=== PATIENT | male | born 1975 | race Caucasian/White ===

== ENCOUNTER 2016-09-11 14:25 | Emergency (ER) | payer BC ==
[2016-09-11] MEDS ORDERED: Sodium Chloride 0.9% 10 ML Syringe FLUSH PRN (14:40)
--- NOTE | 2016-09-11 14:50 | EDM.PDOC ---
ED HPI GENERAL MEDICAL PROBLEM - General Chief Complaint: Chest Pain Stated Complaint: CHEST PAIN Time Seen by Provider: 09/11/16 14:31 Source of Information: Reports: Patient, RN Notes Reviewed - History of Present Illness INITIAL COMMENTS - FREE TEXT/NARRATIVE: 41 year old male with intermitent chest pains for about 1 week. Pressure achy discomfort lower chest also associated with upper abd pressure and cramps, duration about 1 minute or less per episode but happening more than once per day. Also feels "low energy" Has some chronic discomfort both shoulders "from work", not any worse than usual. No hx of Htn, diabetes or CAD. He does smoke. No known family hx for CAD. Middle Chest Pain Score (Numeric/FACES): 3 - Related Data Allergies Allergy/AdvReac Type Severity Reaction Status Date / Time Penicillins Allergy Cannot Verified 09/11/16 14:37 Remember Home Meds: Home Meds . [No Known Home Meds] 09/11/16 [History] Past Medical History Cardiovascular History: Reports: Heart Murmur Neurological History: Reports: Other (See Below) Other Neuro History: memory lose - Past Surgical History HEENT Surgical History: Reports: Tonsillectomy Social & Family History - Family History Family Medical History: Noncontributory - Tobacco Use Smoking Status *Q: Current Every Day Smoker Years of Tobacco use: 25 Packs/Tins Daily: 1 - Caffeine Use Caffeine Use: Reports: Energy Drinks - Recreational Drug Use Recreational Drug Use: No ED ROS GENERAL - Review of Systems Review Of Systems: See Below Constitutional: Denies: Fever, Chills, Diaphoresis HEENT: Reports: No Symptoms Respiratory: Reports: Shortness of Breath (occasional), Cough (chronic, not worse than usual). Denies: Pleuritic Chest Pain Cardiovascular: Reports: Chest Pain. Denies: Edema, Lightheadedness, Palpitations GI/Abdominal: Reports: Diarrhea (chronically). Denies: Abdominal Pain, Nausea, Vomiting Musculoskeletal: Reports: Shoulder Pain (chronic bilat, not any worse than usual ). Denies: Arm Pain Skin: Reports: No Symptoms Neurological: Reports: No Symptoms ED EXAM, GENERAL - Physical Exam Exam: See Below General Appearance: Alert, Anxious (mild) Eye Exam: Bilateral Eye: PERRL Throat/Mouth: Normal Inspection, Normal Oropharynx Head: Atraumatic. No: Facial Swelling Neck: Supple, Full Range of Motion, Other (no JVD) Respiratory/Chest: No Respiratory Distress, Lungs Clear, Normal Breath Sounds, Chest Non-Tender Cardiovascular: Regular Rate, Rhythm GI/Abdominal: Soft, Non-Tender. No: Guarding Back Exam: No: CVA Tenderness (L), CVA Tenderness (R) Extremities: Normal Inspection. No: Pedal Edema, Leg Pain Neurological: Alert, Oriented, No Motor/Sensory Deficits Skin Exam: Warm, Dry, Normal Color EKG INTERPRETATION EKG Date: 09/11/16 Rhythm: NSR [place]: normal P-wave: present QRS: normal ST-T: normal Course - Vital Signs Last Recorded V/S: Last Vital Signs Temp 98.1 F 09/11/16 14:30 Pulse 71 09/11/16 15:44 Resp 18 09/11/16 15:44 BP 135/88 09/11/16 15:44 Pulse Ox 97 09/11/16 15:44 - Orders/Labs/Meds Orders: Active Orders 24 hr Category Date Time Status EKG 12 Lead [EKG Documentation Completion] [RC] STAT Care 09/11/16 14:32 Active Peripheral IV Care [RC] . DIRECTED Care 09/11/16 14:41 Active Sodium Chloride 0.9% [Saline Flush] Med 09/11/16 14:40 Active 10 ml FLUSH ASDIRECTED PRN Peripheral IV Insertion Adult [OM.PC] Stat Oth 09/11/16 14:41 Ordered Medication Orders Sodium Chloride (Saline Flush) 10 ml FLUSH ASDIRECTED PRN PRN Reason: Keep Vein Open Last Admin: 09/11/16 14:55 Dose: 10 ml Labs: Laboratory Tests 09/11/16 09/11/16 Range/Units 14:40 14:40 WBC 8.04 (4.23-9.07) K/mm3 RBC 4.64 (4.63-6.08) M/mm3 Hgb 14.3 (13.7-17.5) gm/L Hct 40.8 (40.1-51.0) % MCV 87.9 (79.0-92.2) fl MCH 30.8 (25.7-32.2) pg MCHC 35.0 (32.2-35.5) g/dl RDW Std Deviation 41.6 (35.1-43.9) fL Plt Count 254 (163-337) K/mm3 MPV 11.2 (9.4-12.3) fl Neut % (Auto) 55.8 (34.0-67.9) % Lymph % (Auto) 35.7 (21.8-53.1) % [place] % (Auto) 7.6 (5.3-12.2) % Eos % (Auto) 0.4 L (0.8-7.0) Baso % (Auto) 0.4 (0.1-1.2) % Neut # (Auto) 4.49 (1.78-5.38) K/mm3 Lymph # (Auto) 2.87 (1.32-3.57) K/mm3 [place] # (Auto) 0.61 (0.30-0.82) K/mm3 Eos # (Auto) 0.03 L (0.04-0.54) K/mm3 Baso # (Auto) 0.03 (0.01-0.08) K/mm3 Sodium 141 (136-145) mEq/L Potassium 3.9 (3.5-5.1) mEq/L Chloride 107 (98-107) mEq/L Carbon Dioxide 27 (21-32) mEq/L Anion Gap 10.9 (5-15) BUN 15 (7-18) mg/dL Creatinine 1.0 (0.7-1.3) mg/dL Est Cr Clr Drug Dosing 111.88 mL/min Estimated GFR (MDRD) > 60 (>60) mL/min BUN/Creatinine Ratio 15.0 (14-18) Glucose 95 (74-106) mg/dL Calcium 9.3 (8.5-10.1) mg/dL Total Bilirubin 0.3 (0.2-1.0) mg/dL AST 19 (15-37) U/L ALT 45 (16-63) U/L Alkaline Phosphatase 78 (46-116) U/L Troponin I < 0.017 (0.00-0.056) ng/mL Total Protein 7.5 (6.4-8.2) g/dl Albumin 3.9 (3.4-5.0) g/dl Globulin 3.6 gm/dL Albumin/Globulin Ratio 1.1 (1-2) Meds: Medications Generic Name Dose Route Start Last Admin Trade Name Juanq PRN Reason Stop Dose Admin Sodium Chloride 10 ml 09/11/16 14:40 09/11/16 14:55 Saline Flush FLUSH 10 ml ASDIRECTED PRN Administration Keep Vein Open - Re-Assessments/Exams Free Text/Narrative Re-Assessment/Exam: 09/11/16 15:58 trop, EKG, CXR, other labs all normal, discharge instr. as documented. Departure - Departure Time of Disposition: 15:49 Disposition: Home, Self-Care 01 Condition: fair Clinical Impression: Atypical chest pain GERD (gastroesophageal reflux disease) Qualifiers: Esophagitis presence: without esophagitis Qualified Code(s): K21.9 - Gastro- esophageal reflux disease without esophagitis Instructions: Nonspecific Chest Pain, Gastroesophageal Reflux Disease, Adult Referrals: PCP,None [Primary Care Provider] - Forms: ED Department Discharge Additional Instructions: try hard to stop smoking, pepcid (famotidine), available OTC, 20 mg twice daily for stomach acid reduction, probiotic twice daily, also available OTC, follow up clinic as needed, return to ED as needed if symptoms worsening in any way. - My Orders Last 24 Hours: My Active Orders 09/11/16 14:32 EKG 12 Lead [EKG Documentation Completion] [RC] STAT 09/11/16 14:40 Sodium Chloride 0.9% [Saline Flush] 10 ml FLUSH ASDIRECTED PRN 09/11/16 14:41 Peripheral IV Care [RC] . DIRECTED Peripheral IV Insertion Adult [OM.PC] Stat - Assessment/Plan Last 24 Hours: My Active Orders 09/11/16 14:32 EKG 12 Lead [EKG Documentation Completion] [RC] STAT 09/11/16 14:40 Sodium Chloride 0.9% [Saline Flush] 10 ml FLUSH ASDIRECTED PRN 09/11/16 14:41 Peripheral IV Care [RC] . DIRECTED Peripheral IV Insertion Adult [OM.PC] Stat
--- NOTE | 2016-09-11 15:15 | CR ---
Chest: Portable view of the chest was obtained. Comparison: No previous chest x-ray. Heart size and mediastinum are normal. Lungs are clear. Minimal scoliosis is noted. Impression: 1. Nothing acute is seen on portable chest x-ray. Diagnostic code #2
[2016-09-11 16:07] VITALS: BP 132/74
== END 2016-09-11 16:05 | disposition home or self-care (01) ==
LOC: JD.ED 14:25
DX: K21.9 Gastro-esophageal reflux disease without esophagitis (principal); F17.210 Nicotine dependence, cigarettes, uncomplicated; Z88.0 Allergy status to penicillin; Z98.890 Other specified postprocedural states
CPT/HCPCS: 36415; 71010; 80053; 84484; 85025; 93005; 99285; J7050; 99284

== ENCOUNTER 2017-10-17 11:46 | Emergency (ER) | payer BC ==
[2017-10-17 12:12] VITALS: BP 116/71
[2017-10-17] MEDS ORDERED: Sodium Chloride 0.9% 1,000 ML IV ONE (12:42)
[2017-10-17] MEDS ORDERED: Ondansetron 4 MG/2 ML SDV IVPUSH ONE (12:42)
[2017-10-17] MEDS ORDERED: HYDROmorphone 0.5 MG/0.5 ML SYRINGE IVPUSH ONE (12:42)
[2017-10-17] MEDS ORDERED: Iopamidol 612 MG/ML 100 ML Bottle IVPUSH ONE (12:47)
--- NOTE | 2017-10-17 12:49 | EDM.PDOC ---
ED HPI GENERAL MEDICAL PROBLEM - General Chief Complaint: ENT Problem Stated Complaint: DENTAL COMPLAINT Time Seen by Provider: 10/17/17 12:28 Source of Information: Reports: Patient History Limitations: Reports: No Limitations - History of Present Illness INITIAL COMMENTS - FREE TEXT/NARRATIVE: 42-year-old male presents for evaluation and treatment of dental pain. Patient reports that he had 8 teeth extracted on October 09 by a local dentist. He was prescribed Tylenol No. 3 and clindamycin. He states he has been unable to take antibiotic and pain medication due to nausea. Feels that the pain is significantly worsening. Not been able to eat in the last 8 days. No fevers, chills or vomiting. Does feel nauseous. He feels that his face is very swollen and painful. Patient is a current, every day smoker. Bilateral Oral/Mouth Pain Score (Numeric/FACES): 8 - Related Data Allergies Allergy/AdvReac Type Severity Reaction Status Date / Time Penicillins Allergy Cannot Verified 09/11/16 14:37 Remember Home Meds: Home Meds Acetaminophen with Codeine [Tylenol with Codeine #3 Tablet] 1 each PO Q6H PRN [History] Acetaminophen/oxyCODONE [Percocet 325-5 MG] 1 each PO Q6HR PRN #15 tab 10/17/17 [Rx] Clindamycin HCl [Cleocin] 150 mg PO Q6H 10/17/17 [History] Ondansetron [Zofran ODT] 4 mg PO Q6H PRN #20 tab.dis 10/17/17 [Rx] Past Medical History Cardiovascular History: Reports: Heart Murmur Neurological History: Reports: Other (See Below) Other Neuro History: memory lose - Past Surgical History HEENT Surgical History: Reports: Oral Surgery, Tonsillectomy Social & Family History - Family History Family Medical History: Noncontributory - Tobacco Use Smoking Status *Q: Current Every Day Smoker Years of Tobacco use: 28 Packs/Tins Daily: 1 - Caffeine Use Caffeine Use: Reports: Energy Drinks - Recreational Drug Use Recreational Drug Use: Yes Recreational Drug Type: Reports: Cocaine, Marijuana/Hashish ED ROS ENT - Review of Systems Review Of Systems: See Below Constitutional: Denies: Fever, Chills HEENT: Reports: Dental Pain. Denies: Ear Pain GI/Abdominal: Reports: Nausea. Denies: Abdominal Pain (discomfort), Vomiting Neurological: Reports: Headache ED EXAM, ENT - Physical Exam Exam: See Below Exam Limited By: No Limitations General Appearance: Alert, WD/WN, No Apparent Distress Eye Exam: Bilateral Eye: Normal Inspection Ears: Normal External Exam, Normal TMs (left), TM Obscured by Cerumen (right) Nose: Normal Inspection Mouth/Throat: Normal Inspection, Dental Tenderness (multiple carries present), Dental Trauma (multiple missing teeth; 1 tooth recently removed from the right lower jaw; 3-4 teeth recently removed from both upper jaws), Gum Swelling. No: Dental Abcess Neck: Normal Inspection, Lymphadenopathy (L), Lymphadenopathy (R) Respiratory/Chest: No Respiratory Distress, Lungs Clear, Normal Breath Sounds Cardiovascular: Normal Peripheral Pulses, Regular Rate, Rhythm, No Murmur Neurological: Alert, Oriented, Normal Cognition Psychiatric: Normal Affect, Normal Mood Skin: Warm, Dry, Normal Color Course - Vital Signs Last Recorded V/S: Last Vital Signs Temp 98.1 F 10/17/17 12:09 Pulse 67 10/17/17 12:09 Resp 18 10/17/17 12:09 BP 116/71 10/17/17 12:09 Pulse Ox 97 10/17/17 12:09 - Orders/Labs/Meds Labs: Laboratory Tests 10/17/17 10/17/17 Range/Units 13:14 13:14 WBC 6.56 (4.23-9.07) K/mm3 RBC 4.41 L (4.63-6.08) M/mm3 Hgb 13.8 (13.7-17.5) gm/L Hct 39.6 L (40.1-51.0) % MCV 89.8 (79.0-92.2) fl MCH 31.3 (25.7-32.2) pg MCHC 34.8 (32.2-35.5) g/dl RDW Std Deviation 43.0 (35.1-43.9) fL Plt Count 224 (163-337) K/mm3 MPV 10.9 (9.4-12.3) fl Neutrophils % (Manual) 50 (40-60) % Band Neutrophils % 2 (0-10) % Lymphocytes % (Manual) 40 (20-40) % Atypical Lymphs % 0 % Monocytes % (Manual) 7 (2-10) % Eosinophils % (Manual) 0 L (0.8-7.0) % Basophils % (Manual) 1 (0.2-1.2) Platelet Estimate Adequate RBC Morph Comment Normal Sodium 137 (136-145) mEq/L Potassium 3.6 (3.5-5.1) mEq/L Chloride 103 (98-107) mEq/L Carbon Dioxide 24 (21-32) mEq/L Anion Gap 13.6 (5-15) BUN 18 (7-18) mg/dL Creatinine 0.8 (0.7-1.3) mg/dL Est Cr Clr Drug Dosing 138.43 mL/min Estimated GFR (MDRD) > 60 (>60) mL/min BUN/Creatinine Ratio 22.5 H (14-18) Glucose 78 (74-106) mg/dL Calcium 9.0 (8.5-10.1) mg/dL Total Bilirubin 0.6 (0.2-1.0) mg/dL AST 21 (15-37) U/L ALT 41 (16-63) U/L Alkaline Phosphatase 82 (46-116) U/L C-Reactive Protein < 0.2 (<1.0) mg/dL Total Protein 7.4 (6.4-8.2) g/dl Albumin 3.9 (3.4-5.0) g/dl Globulin 3.5 gm/dL Albumin/Globulin Ratio 1.1 (1-2) Meds: Medications Discontinued Medications Generic Name Dose Route Start Last Admin Trade Name Freq PRN Reason Stop Dose Admin Hydromorphone HCl 1 mg 10/17/17 12:42 10/17/17 13:24 Dilaudid IVPUSH 10/17/17 12:43 1 mg ONETIME ONE Administration Sodium Chloride 1,000 mls @ 999 mls/hr 10/17/17 12:42 10/17/17 13:22 Normal Saline IV 10/17/17 13:42 999 mls/hr ONETIME ONE Administration Iopamidol 80 ml 10/17/17 12:47 10/17/17 13:37 Isovue-300 (61%) IVPUSH 10/17/17 12:48 80 ml ONETIME ONE Administration Ondansetron HCl 4 mg 10/17/17 12:42 10/17/17 13:23 Zofran IVPUSH 10/17/17 12:43 4 mg ONETIME ONE Administration Sodium Chloride 10 ml 10/17/17 12:47 10/17/17 13:38 Saline Flush FLUSH 10/17/17 12:48 10 ml ONETIME ONE Administration - Radiology Interpretation Free Text/Narrative:: CT facial Technique: Multiple axial sections were obtained through the face from above the frontal sinuses inferiorly through the mandible. Intravenous contrast was utilized. Findings: Normal enhancing vascular structures are identified. Paranasal sinuses shows mild mucosal thickening within the maxillary sinuses on both sides. No acute bony abnormality is seen. Small normal-appearing lymph nodes are scattered within the neck. No fluid collections are seen to indicate abscess. Parotid and submandibular salivary glands are within normal limits. Impression: 1. Mild mucosal thickening within the inferior maxillary sinuses on both sides which is likely chronic. 2. Scattered lymph nodes are believed to be within normal limits. 3. Nothing acute is appreciated on contrast-enhanced CT study of the face. - Re-Assessments/Exams Free Text/Narrative Re-Assessment/Exam: 10/17/17 14:14 I reviewed the labs and imaging with the patient. Encouraged him to eat soft foods and rinse his mouth out after eating soft foods. He should continue on his antibiotic as prescribed. I will give him a few pain pills to help with his discomfort. Educated him further refills of his pain medication need to come from his dentist. He expresses understanding. Discharge instructions as documented. Departure - Departure Time of Disposition: 14:16 Disposition: Home, Self-Care 01 Condition: Fair Clinical Impression: Pain, dental - Discharge Information Prescriptions: Acetaminophen/oxyCODONE [Percocet 325-5 MG] 1 each PO Q6HR PRN #15 tab PRN Reason: Pain Ondansetron [Zofran ODT] 4 mg PO Q6H PRN #20 tab.dis PRN Reason: Nausea Instructions: Tooth Injuries, [id number] Referrals: Carlie Last PA [Primary Care Provider] - Forms: ED Department Discharge Additional Instructions: make sure you rinse your mouth out with salt water or mouthwash at least twice a day and after eating. continue to take your antibiotic as prescribed. May take Percocet 1 tab every 6 hours as needed for severe pain not relieved by Tylenol or Motrin. Do not take more than 3200 mg of ibuprofen from all sources in 1 day. Do not take more than 4 g of Tylenol from all sources in 1 day. Percocet is habit-forming, take as few these as needed to control your pain. Do not drive or operate machinery within 12 hours taken Percocet. you were given medication in the ER that can affect your ability to drive and operate machinery. Do not drive or operate machinery within 12 hours of taking Percocet. Zofran 1 tab sublingual her succeed hours as needed for nausea. make sure you are drinking plenty of fluids. Recommend soft foods such as Jell-O , pudding, mash potato, soup broth, Popsicles etc. Follow up with your dentist as soon as he returns for recheck of your symptoms. Please return to the ER if your symptoms change or worsen.
[2017-10-17] MEDS: Sodium Chloride 0.9% 10 ML Syringe FLUSH ONE ×2 (13:24→13:38)
--- NOTE | 2017-10-17 13:52 | CT ---
CT facial Technique: Multiple axial sections were obtained through the face from above the frontal sinuses inferiorly through the mandible. Intravenous contrast was utilized. Findings: Normal enhancing vascular structures are identified. Paranasal sinuses shows mild mucosal thickening within the maxillary sinuses on both sides. No acute bony abnormality is seen. Small normal-appearing lymph nodes are scattered within the neck. No fluid collections are seen to indicate abscess. Parotid and submandibular salivary glands are within normal limits. Impression: 1. Mild mucosal thickening within the inferior maxillary sinuses on both sides which is likely chronic. 2. Scattered lymph nodes are believed to be within normal limits. 3. Nothing acute is appreciated on contrast-enhanced CT study of the face. Diagnostic code #2
== END 2017-10-17 14:45 | disposition home or self-care (01) ==
LOC: JD.ED 11:46
DX: K08.89 Other specified disorders of teeth and supporting structures (principal); F17.210 Nicotine dependence, cigarettes, uncomplicated; Z88.0 Allergy status to penicillin
CPT/HCPCS: 36415; 70487; 80053; 85007; 85027; 86140; 96361; 96374; 96375; 99284; J1170; J2405; J7040; J7050; Q9967

== ENCOUNTER 2023-03-15 10:56 | Emergency (ER) | payer BC, OTHER ==
[2023-03-15 12:20] LABS: CORONAVIRUS COVID-19 NAA NEGATIVE (NEGATIVE); INFLUENZA A NAA POSITIVE (NEGATIVE); RESPIRATORY SYNCYTIAL VIR NAA NEGATIVE (NEGATIVE)
[2023-03-15 12:40] VITALS: BP 124/81; PULSE 84
== END 2023-03-15 12:35 | disposition home or self-care (01) ==
LOC: JD.ED 10:56
DX: J10.1 Influenza due to other identified influenza virus with other respiratory manifestations (principal); F17.210 Nicotine dependence, cigarettes, uncomplicated; Z88.0 Allergy status to penicillin; Z20.822 Contact with and (suspected) exposure to COVID-19
CPT/HCPCS: 0241U; 99283; 99282